=== PATIENT | female | born 1985 | race Caucasian/White ===

== ENCOUNTER 2018-11-11 07:24 | Day surgery (SDC) | payer BC ==
[2018-11-10 12:22] LABS: BASOPHILS % (AUTO) 0.7 % (0-1); EOSINOPHILS # (AUTO) 0.1 X10'3 (0-0.9); EOSINOPHILS % (AUTO) 2.6 % (0-6); LYMPHOCYTES # (AUTO) 2.2 X10'3 (1.1-4.8); LYMPHOCYTES % (AUTO) 41.6 % (21-51); MEAN CORPUSCULAR HEMOGLOBIN 30.5 PG (27.0-31.0); MEAN CORPUSCULAR HGB CONC 33.5 g/dL (33.0-36.5); MEAN PLATELET VOLUME 8.1 FL (7.4-10.4); MONOCYTES # (AUTO) 0.4 X10'3 (0-0.9); MONOCYTES % (AUTO) 8.2 % (2-12); NEUTROPHILS # (AUTO) 2.5 X10'3 (1.8-7.7); NEUTROPHILS % (AUTO) 46.9 % (42-75); PRE OP HEMATOCRIT 42.6 % (35.0-45.0); PRE OP HEMOGLOBIN 14.3 g/dL (12.0-16.0); PRE OP PLATELET COUNT 261 X10'3 (140-440); RED BLOOD COUNT 4.68 X10'6 (4.20-5.60); RED CELL DISTRIBUTION WIDTH 13.3 % (11.5-14.5)
[2018-11-10 12:33] LABS: ALBUMIN 4.2 G/DL (3.4-5.0); ALBUMIN/GLOBULIN RATIO 1.1 (1.1-1.5); ALKALINE PHOSPHATASE 116 IU/L (46-116); BLOOD UREA NITROGEN 10 MG/DL (7-18); BUN/CREATININE RATIO 13.2 (6.6-38.0); CALCIUM 9.6 MG/DL (8.5-10.1); CHLORIDE 107 MMOL/L (99-107); CREATININE 0.76 MG/DL (0.40-0.90); PRE OP ANION GAP 8 (8-16); PRE OP AST 59 U/L (10-37); PRE OP BILIRUB, TOTAL 0.6 MG/DL (0.0-1.0); PRE OP GLUCOSE 100 MG/DL (70-104); PRE OP POTASSIUM 3.9 MMOL/L (3.4-5.1); PRE OP SODIUM 143 MMOL/L (135-145); TOTAL CARBON DIOXIDE 28.1 MMOL/L (24-32); TOTAL PROTEIN 8.1 G/DL (6.4-8.2); eGFR 88 ML/MIN
[2018-11-10 12:42] LABS: HCG SERUM QL NEGATIVE
[2018-11-10 12:52] LABS: PRE OP ALT 173 U/L (30-65)
[~2018-11-11] VITALS: Ht 162.6 cm; Wt 70.5 kg
[~2018-11-11 07:24] MED LIST: ACET-2119 PO; BUPIVAcaine/PF 2.5mg/ml (0.25%) 10ml vial ONE; PNV1TABL75 PO; cefazolin/dext.iso 2gm/50ml 50 ML IV ONE; epiNEPHrine 1 mg/ml inj ONE; famotidine 20mg tablet PO ONE; ringers solution, lacted 1,000 ML IV SCH
[2018-11-11 07:30] VITALS: BP 127/78
[2018-11-11] MEDS ORDERED: BUPIVAcaine/PF 2.5mg/ml (0.25%) 10ml vial ONE (08:12)
[2018-11-11] MEDS ORDERED: epiNEPHrine 1 mg/ml inj ONE (08:12)
[2018-11-11] MEDS ORDERED: midazolam 2 mg/2 ml injection ONE (08:48)
[2018-11-11] MEDS ORDERED: sevoflurane 250ml liquid IH ONE (08:48)
[2018-11-11] MEDS ORDERED: dexamethasone sod phosphate 10mg/ml inj ONE (08:48)
[2018-11-11] MEDS ORDERED: fentaNYL/PF 50MCG/1 ML 2ML syringe ONE (08:48)
[2018-11-11] MEDS ORDERED: rocuronium 10mg/ml inj IV ONE (09:12)
[2018-11-11] MEDS ORDERED: propofol inj 20 ML IV ONE (09:12)
[2018-11-11] MEDS ORDERED: ondansetron/PF 4mg/2ml inj ONE (09:12)
[2018-11-11] MEDS ORDERED: ketorolac trometh. 30mg/ml inj. ONE (09:34)
[2018-11-11] MEDS ORDERED: glycopyrrolate 0.2mg/ml inj ONE (09:34)
[2018-11-11] MEDS ORDERED: neostigmine methylsulfate 1 MG/ML 10ml vial ONE (09:34)
[2018-11-11 09:40] VITALS: BP 117/71
--- NOTE | 2018-11-11 09:40 | NUR ---
ADMITTED TO PACU FROM OR ACCOMPANIED BY ANESTHESIA. INTIAL PHYSICAL ASSESSMENT DONE AND RECORDED. AWAKE AND RESPONSE ON ARRIVE YO PACU, REPORT RECEIVED FROM ANESTHESIA.
[2018-11-11] MEDS ORDERED: ringers solution, lacted 1,000 ML IV SCH (09:41)
[2018-11-11] MEDS ORDERED: ondansetron/PF 4mg/2ml inj IV PRN (09:45)
[2018-11-11] MEDS ORDERED: meperidine/PF 25mg/ml syringe IV PRN ×3 (09:45)
[2018-11-11] MEDS ORDERED: morphine 4 MG/ML inj SYRINge IV PRN ×2 (09:45)
[2018-11-11] MEDS ORDERED: proCHLORperazine 10 MG/2 ml inj IV PRN (09:45)
[2018-11-11 09:50] VITALS: BP 111/71
[2018-11-11 10:00] VITALS: BP 110/70
[2018-11-11 10:10] VITALS: BP 108/68
--- NOTE | 2018-11-11 10:15 | NUR ---
Discharge criteria met, discharge instructions given, demonstrates verbal understanding. Discharged home in good condition.
== END 2018-11-11 10:15 | disposition home or self-care (01) ==
LOC: PAS 07:24
PROVIDERS: ATTEND Obstetrics & Gynecology
DX: Z30.2 Encounter for sterilization (principal); Z88.5 Allergy status to narcotic agent; Z98.890 Other specified postprocedural states; Z79.899 Other long term (current) drug therapy
CPT/HCPCS: 36415; 58670; 80053; 84703; 85025; A6258; J0171; J1885; J2250; J2405; J2704; J2710; J3010; J3490; J7120; A4618; A6402; A7000; J1100